=== PATIENT | female | born 1950 | race Caucasian/White ===

== ENCOUNTER 2023-04-18 09:31 | Emergency (ER) | payer MEDICARE, OTHER ==
[~2023-04-18] VITALS: Ht 162.6 cm; Wt 65.7 kg
[2023-04-18] VITALS (16 sets, daily range): BP systolic 91–135; BP diastolic 52–76
[2023-04-18] MEDS ORDERED: ASPIRIN 81 MG/TAB PO ONE (09:45)
[2023-04-18] MEDS ORDERED: ZOLOFT25 MG PO (09:56)
[2023-04-18 10:33] LABS: BASO% 0.7 % (0-3); EOS% 7.8 % (0-8); HEMATOCRIT 37.2 % (37.0-47.0); HEMOGLOBIN 11.6 g/dl (12.0-16.0); IMMATURE GRANULOCYTES 0.2 % (0.0-5.0); LYMPH% 24.1 % (15-41); MEAN CELL VOLUME 68.4 fL CALC (80.0-100.0); MEAN CORPUSCULAR HGB 21.3 pG CALC (26.0-32.0); MEAN CORPUSCULAR HGB CONC 31.2 g/dL CAL (32.0-36.0); MONO% 12.1 % (2-13); NEUT# 3.25 thou/uL (2.00-7.15); NEUT% 55.1 % (42-76); RED BLOOD COUNT 5.44 mill/uL (4.20-5.60); RED CELL DISTRI WIDTH 16.9 % (11.5-15.5)
[2023-04-18 10:34] LABS: ALBUMIN 4.3 g/dL (3.2-5.0); ALKALINE PHOSPHATASE 70 u/l (38-126); ANION GAP 9 (6-22 (CALC)); BILIRUBIN, TOTAL 0.7 mg/dL (0.02-1.3); BUN 17 mg/dL (8-23); BUN/CREATININE RATIO 26 (12-20 (CALC)); CARBON DIOXIDE 27 mmol/l (22-30); CHLORIDE 107 mmol/l (95-108); CREATININE 0.7 mg/dL (0.5-1.0); GFR FOR AFR.AMER. > 60 ML/MIN (>=60 (CALC)); GFR OTHER RACES > 60 ML/MIN (>=60 (CALC)); POTASSIUM 4.4 mmol/l (3.5-5.1); SGOT/AST 37 u/l (9-36); SODIUM 139 mmol/l (137-146); TOTAL PROTEIN 7.3 g/dL (6.3-8.2)
== END 2023-04-18 13:42 | disposition left against medical advice (07) ==
LOC: ED 09:31 → ED-I 12:50 → ED 13:42
PROVIDERS: Family Medicine
DX: R07.9 Chest pain, unspecified (principal); E78.5 Hyperlipidemia, unspecified; F32.A Depression, unspecified; Z53.29 Procedure and treatment not carried out because of patient's decision for other reasons